=== PATIENT | female | born 1940 | race Caucasian/White ===

== ENCOUNTER → 2023-10-29 14:27 | Outpatient (REF) | payer MEDICARE, OTHER, SELFPAY ==
[2023-10-29 15:15] LABS: % Basophils 0.5 % (0-2); % Eosinophils 3.6 % (0-6); % Immature Granulocytes 0.2 % (0-0.5); % Lymphocytes 44.2 % (20.5-51.1); % Monocytes 7.1 % (1.7-9.3); % Neutrophils 44.4 % (42.2-75.2); Absolute Eosinophils 0.2 10^3/uL (0-0.7); Absolute Lymphocytes 2.6 10^3/uL (1.2-3.4); Absolute Monocytes 0.4 10^3/uL (0.1-0.6); Absolute Neutrophils 2.6 10^3/uL (1.4-6.5); Hematocrit 37.5 % (37.0-47.0); Hemoglobin 12.6 g/dL (12.0-16.0); Mean Corp Hgb Conc. 33.6 g/dL (33.0-37.0); Mean Corpuscular Hgb 29.2 pg (27.0-31.0); Mean Corpuscular Volume 86.8 fL (81.0-99.0); Nucleated Red Blood Cells % 0 %; Platelet Count 251 10^3/uL (130-400); Red Blood Cell Count 4.32 10^6/uL (4.20-5.40); Red Cell Dist. Width 13.5 % (11.5-14.5); White Blood Cell Count 5.9 10^3/uL (4.8-10.8)
[2023-10-29 15:29] LABS: ALT (SGPT) 17 U/L (0-35); AST (SGOT) 26 U/L (14-36); Albumin 4.2 g/dl (3.5-5.0); Alkaline Phosphatase 80 U/L (38-126); Blood Urea Nitrogen 23 mg/dl (7-17); Calcium 9.9 mg/dl (8.4-10.2); Carbon Dioxide 27 mmol/L (22-30); Chloride 102 mmol/L (98-107); Glucose 91 mg/dl (70-99); Potassium 4.6 mmol/L (3.5-5.1); Sodium 138 mmol/L (135-145); Total Bilirubin 0.5 mg/dl (0.2-1.3); Total Protein 6.5 g/dl (6.3-8.2); eGFR > 60.00
== END ==
LOC: REG 14:27
PROVIDERS: ATTENDING PHYSICIAN Student in an Organized Health Care Education/Training Program
DX: Z00.00 Encounter for general adult medical examination without abnormal findings (principal); E78.00 Pure hypercholesterolemia, unspecified
CPT/HCPCS: 36415; 80053; 85025

== ENCOUNTER → 2023-12-22 07:43 | Outpatient (REF) | payer MEDICARE, OTHER, SELFPAY | LOC: EMG 07:43 | PROVIDERS: ATTENDING PHYSICIAN Orthopaedic Surgery Hand Surgery; FAMILY PHYSICIAN Student in an Organized Health Care Education/Training Program | DX: G56.01 Carpal tunnel syndrome, right upper limb (principal); R20.0 Anesthesia of skin | CPT/HCPCS: 95886; 95909 ==

== ENCOUNTER → 2024-02-02 19:28 | Outpatient (REF) | payer MEDICARE, OTHER, SELFPAY | LOC: MRI 19:28 | PROVIDERS: ATTENDING PHYSICIAN Specialist; FAMILY PHYSICIAN Student in an Organized Health Care Education/Training Program | DX: M25.551 Pain in right hip (principal) | CPT/HCPCS: 73721 ==

== ENCOUNTER → 2024-03-23 11:32 | Outpatient (REF) | payer MEDICARE, OTHER, SELFPAY | LOC: MRI 3T 11:32 | PROVIDERS: ATTENDING PHYSICIAN Surgery; FAMILY PHYSICIAN Student in an Organized Health Care Education/Training Program | DX: M54.16 Radiculopathy, lumbar region (principal) | CPT/HCPCS: 72148 ==

== ENCOUNTER → 2024-05-31 12:18 | Outpatient (REF) | payer MEDICARE, OTHER, SELFPAY | LOC: REG 12:18 | PROVIDERS: ATTENDING PHYSICIAN Physician Assistant; FAMILY PHYSICIAN Student in an Organized Health Care Education/Training Program | DX: R19.7 Diarrhea, unspecified (principal) | CPT/HCPCS: 82705; 83993; 87045; 87046; 87324; 87328; 87329; 87427; 87449 ==

== ENCOUNTER → 2025-09-02 11:23 | Outpatient (REF) | payer MEDICARE, OTHER, SELFPAY | LOC: REG 11:23 | PROVIDERS: ATTENDING PHYSICIAN Internal Medicine Gastroenterology; FAMILY PHYSICIAN Student in an Organized Health Care Education/Training Program | DX: K52.832 Lymphocytic colitis (principal) | CPT/HCPCS: 82705; 87045; 87046; 87324; 87427; 87449; 89055 ==